=== PATIENT | male | born 1980 | race Two or more races ===

== ENCOUNTER 2019-03-30 09:04 | Emergency (ER) | payer MEDICAID, OTHER ==
[~2019-03-30] VITALS: Ht 167.6 cm; Wt 90.7 kg
[2019-03-30 09:16] VITALS: BP 145/70
[2019-03-30] MEDS ORDERED: LIDOCAINE 1% HCL (LOCAL ANESTH.) INJ 20ML MDV IJ ONE (09:45)
[2019-03-30] MEDS ORDERED: TETANUS-DIPTH-ACEL PERTUSSIS 0.5ML SYRG IM ONE (10:15)
== END 2019-03-30 10:27 | disposition home or self-care (01) ==
LOC: ER 09:04
DX: S61.411A Laceration without foreign body of right hand, initial encounter (principal); S61.511A Laceration without foreign body of right wrist, initial encounter; W25.XXXA Contact with sharp glass, initial encounter; Y93.89 Activity, other specified; Y92.89 Other specified places as the place of occurrence of the external cause; Y99.8 Other external cause status
CPT/HCPCS: 12004; 90471; 90715; 99284; J2001

== ENCOUNTER 2019-04-02 18:10 | Emergency (ER) | payer MEDICAID ==
[~2019-04-02] VITALS: Ht 167.6 cm; Wt 90.7 kg
[2019-04-02 21:30] VITALS: BP 132/74
== END 2019-04-02 22:58 | disposition home or self-care (01) ==
LOC: ER 18:12
DX: S61.411D Laceration without foreign body of right hand, subsequent encounter (principal); Z48.01 Encounter for change or removal of surgical wound dressing; X58.XXXD Exposure to other specified factors, subsequent encounter

== ENCOUNTER 2019-04-07 10:25 | Emergency (ER) | payer MEDICAID ==
[~2019-04-07] VITALS: Ht 167.6 cm; Wt 90.7 kg
[2019-04-07 11:07] VITALS: BP 120/70
== END 2019-04-07 11:20 | disposition home or self-care (01) ==
LOC: ER 10:32
DX: S61.411D Laceration without foreign body of right hand, subsequent encounter (principal); X58.XXXD Exposure to other specified factors, subsequent encounter

== ENCOUNTER 2019-04-13 10:44 | Emergency (ER) | payer MEDICAID ==
[~2019-04-13] VITALS: Ht 167.6 cm; Wt 90.7 kg
[2019-04-13 10:50] VITALS: BP 112/76
== END 2019-04-13 11:37 | disposition home or self-care (01) ==
LOC: ER 10:44
DX: S61.411D Laceration without foreign body of right hand, subsequent encounter (principal); S61.512D Laceration without foreign body of left wrist, subsequent encounter; X58.XXXD Exposure to other specified factors, subsequent encounter

== ENCOUNTER 2019-07-14 18:42 | Emergency (ER) | payer MEDICAID ==
[~2019-07-14] VITALS: Ht 167.6 cm; Wt 90.7 kg
[2019-07-14 21:41] VITALS: BP 119/77
== END 2019-07-14 21:49 | disposition home or self-care (01) ==
LOC: ER 18:46
DX: M54.5 Low back pain (principal); F12.10 Cannabis abuse, uncomplicated

== ENCOUNTER 2020-02-21 08:49 | Emergency (ER) | payer MEDICAID ==
[~2020-02-21] VITALS: Ht 170.2 cm; Wt 90.7 kg
[2020-02-21 09:00] VITALS: BP 137/75
[2020-02-21] MEDS ORDERED: KETOROLAC TROMETH 60MG/2ML VIAL IM ONE (10:00)
== END 2020-02-21 10:34 | disposition home or self-care (01) ==
LOC: ER 08:49
DX: L08.89 Other specified local infections of the skin and subcutaneous tissue (principal)
CPT/HCPCS: 96372; 99283; J1885